=== PATIENT | female | born 1995 | race Caucasian/White ===

== ENCOUNTER 2018-10-31 15:24 | Emergency (ER) | payer OTHER ==
[~2018-10-31] VITALS: Ht 162.6 cm; Wt 142.2 kg
[~2018-10-31 15:24] MED LIST: HYDR-4011 PO; NAPR-985 PO
[2018-10-31 15:31] VITALS: BP 157/69; PULSE 69; RESP 16; Ht 162.6 cm; Wt 142.2 kg
[2018-10-31] MEDS ORDERED: KETOROLAC 60 MG INJ IM STA (15:51)
--- NOTE | 2018-10-31 15:58 | ERD ---
ER Documentation Chief Complaint Chief Complaint R leg pain/bruising s/p fall on Tuesday. no KO HPI Patient is 23 years old female with no known past medical history presenting to the clinic for right lower extremity pain/swelling status post falling injury on Tuesday. Patient reports climbing down the stairs into her friend's backyard when she slipped and fell onto the concrete floor. Patient reports the pain was mild but has steadily grown worse and she is unable to walk due to pain. Admits to taking [id number] Aleve without resolution of symptoms. Patient denies all other review of systems. She rates her pain 8 out of 10 denies any head trauma or loss of consciousness. ROS All systems reviewed and are negative except as per history of present illness. Medications Home Meds Active Scripts Ibuprofen* (Motrin*) 800 Mg Tab, 800 MG PO Q6H PRN for PAIN AND OR ELEVATED TEMP, #30 TAB Prov:KATLYN CUI PA-C 10/31/18 Naproxen* (Naprosyn*) 500 Mg Tablet, 500 MG PO BID PRN for PAIN AND/OR I NFLAMMATION, #30 TAB Prov:MARY RUIZ PA-C 06/05/18 Hydrocodone/Acetaminophen ([place] 5-325 Tablet) 1 Each Tablet, 1 TAB PO Q6H PRN for PAIN, #7 TAB Prov:MARY RUIZ PA-C 06/05/18 Allergies Allergies: Coded Allergies: No Known Allergy (Unverified , 10/31/18) PMhx/Soc Medical and Surgical Hx: pt denies Medical Hx, pt denies Surgical Hx History of Surgery: No Anesthesia Reaction: No Hx Neurological Disorder: No Hx Respiratory Disorders: No Hx Psychiatric Problems: No Hx Miscellaneous Medical Probl: No Hx Alcohol Use: Yes Hx Substance Use: No Hx Tobacco Use: No FmHx Family History: No diabetes, No coronary disease, No other Physical Exam Vitals Vital Signs Date Temp Pulse Resp B/P (MAP) Pulse Ox O2 O2 Flow FiO2 Time Delivery Rate 10/31/18 98.0 69 16 157/69 99 15:31 (98) Physical Exam Const: No acute distress Head: Atraumatic Eyes: Normal Conjunctiva Resp: Clear to auscultation bilaterally Cardio: Regular rate and rhythm, no murmurs Skin: No petechiae or rashes Back: No midline or flank tenderness Neur: Awake and alert Psych: Normal Mood and Affect Right lower extremity exam: Tenderness to proximal tibia-fibula to mid lower extremity with multiple ecchymoses and swelling. Compartment soft. Skin intact. Neurovascular exam intact. 2+ pedal pulse. Results 24 hrs Laboratory Tests Test 10/31/18 16:07 POC Beta HCG, Qualitative NEGATIVE Current Medications Medications Dose Sig/Drew Start Time Status Last (Trade) Ordered Route PRN Stop Time Admin Dose Reason Admin Ketorolac 60 mg ONCE STAT 10/31/18 DC 10/31/18 Tromethamine IM 15:51 10/31/18 16:15 (Toradol) 15:53 Procedures/MDM Patient was seen and evaluated for right lower extremity status post falling injury. Right tibia-fibula x-ray revealed Normal x-ray of the right tibia and fibula. Toradol 60 mg IM administered in ED. Patient is stable ready for discharge. F/U with PCP. Patient will be discharged with ibuprofen 800 mg. She was advised to use ice and leg elevation. Patient was advised to avoid weightbearing activity for about 1 week. Departure Diagnosis: Primary Impression: Injury of right leg Encounter type: initial encounter Qualified Codes: S89.91XA - Unspecified injury of right lower leg, initial encounter Condition: Stable Patient Instructions: Contusion, Lower Extremity Referrals: [facility] Additional Instructions: Patient advised to return to the ED immediately for new or worsening symptoms. Patient advised to follow up with primary care provider in the next 24-48 hours. Patient verbalized understanding and agrees with treatment plan and course of action. If patient has no primary care they may follow up with [facility] [address] [place] [id number] or [facility] [address] [place] [address] or [facility] [address] [place] [address] KATLYN CUI PA-C Oct 31, 2018 15:58
[2018-10-31] MEDS ORDERED: IBUP800T48 PO (17:24)
== END 2018-10-31 17:36 | disposition home or self-care (01) ==
LOC: FTE 15:24
DX: S89.91XA Unspecified injury of right lower leg, initial encounter (principal); W10.8XXA Fall (on) (from) other stairs and steps, initial encounter; Y92.007 Garden or yard of unspecified non-institutional (private) residence as the place of occurrence of the external cause
CPT/HCPCS: 73590; 81025; 96372; J1885; Z7502